=== PATIENT | female | born 1990 | race African-American/Black ===

== ENCOUNTER 2016-11-16 23:12 | Emergency (ER) | payer OTHER ==
--- NOTE | ~2016-11-16 | US61 ---
[facility] A Service of [facility] & [facility] RADIOLOGY TEXT RESULTS PATIENT: LEIGH RICHARDSON LOCATION: [facility] : [birth year] UNIT #: [id number] AGE: [address]: Melvi Cortes MD SEX: F ORDER DR: [id number] [facility] [address] [place], [place] [address] [id number] E MR#: [id number] Acc #: [id number] NAME: LEIGH RICHARDSON : 1990 SEX: F STUDY DATE/TIME: 11/17/2016 4:42 UNIT: [facility] ROOM: STUDY DESCRIPTION: US /Mat <14Wk / Attending Physician: Melvi Cortes M.D. Ordering Physician: Melvi Cortes M.D. Primary Care Physician: No Primary Care Physician MEDICAL IMAGING REPORT This report is preliminary unless electronic signature is present EXAM Early ultrasound. INDICATIONS Abdominal pain. Quantitative HCG 16,000. FINDINGS Transabdominal and transvaginal imaging was performed. The uterus is 10.1 x 4.5 x 6.1 cm. There is a gestational sac within the uterus. A yolk sac is visible. No pole is visible. Estimated gestational age based on the 16 mm gestational sac diameter is 6 weeks and 4 days. Right ovary is normal in appearance and is 3.2 cm in diameter. Left ovary is normal in appearance and is 2.3 cm in diameter. IMPRESSION 1. There is a gestational sac, but no pole is visible, and there is no heartbeat visible. Based on gestational sac size, the patient should be 6 weeks and 4 days . The absence of a pole could indicate a blighted ovum or it could simply be a very early . 2. The ovaries appear normal. Dictated by... Domingo Randhawa M.D. THIS IS AN ELECTRONICALLY VERIFIED REPORT Domingo Randhawa M.D. at 11/18/2016 3:38 AM RAMESH/humberto TD: 11/17/2016 10:28 JOB #: [id number] [facility] A Service of [facility] & [facility] RADIOLOGY TEXT RESULTS PATIENT: LEIGH RICHARDSON LOCATION: [facility] #: [id number] : [birth year] UNIT #: [id number] AGE: [address]: Melvi Cortes MD SEX: F ORDER DR: MEDICAL IMAGING REPORT Page 1 of 1 COPY
[2016-11-17 03:44] LABS: BASOPHIL# 0.1 X10e3 (0-0.3); BASOPHIL% 1.1 % (0-2.5); EOSINOPHIL# 0.1 X10e3 (0-0.7); EOSINOPHIL% 1.6 % (0.0-7.0); HEMATOCRIT 43.6 % (35.0-45.0); HEMOGLOBIN 14.6 gm/dL (12.0-16.0); LYMPHOCYTE# 3.2 X10e3 (1.0-3.5); LYMPHOCYTE% 34.5 % (17.0-45.0); MEAN CELL VOLUME 93.2 FL (83-96); MEAN CORPUSCULAR HEMOGLOBIN 31.2 PG (28-34); MEAN CORPUSCULAR HGB CONC 33.5 g/dL (30-36); MEAN PLATELET VOLUME 7.1 FL (6.5-11.5); MONOCYTE# 0.6 X10e3 (0-1.0); MONOCYTE% 6.9 % (3.0-12.0); NEUTROPHIL# 5.3 X10e3 (1.5-7.1); NEUTROPHIL% 55.9 % (40-75); PLATELET COUNT 345 X10e3 (140-420); RED BLOOD COUNT 4.68 X10e (3.90-5.30); RED CELL DISTRIBUTION WIDTH 12.9 % (11.0-15.5); WHITE BLOOD COUNT 9.4 X10e3 (4.0-10.5)
[2016-11-17 03:45] LABS: DIFF IND NO
[2016-11-17 04:10] LABS: CALCIUM SERUM 9.2 mg/dL (8.4-10.2); CREATININE SERUM 0.9 mg/dL (0.6-1.4); GLOM FILT RATE Estimated 103.1 mL/min (>60); POTASSIUM 3.6 mmol/L (3.5-5.1)
== END 2016-11-17 05:25 | disposition home or self-care (01) ==
LOC: CED 23:12
PROVIDERS: Student in an Organized Health Care Education/Training Program
DX: O20.0 Threatened abortion (principal); Z3A.01 Less than 8 weeks gestation of pregnancy
CPT/HCPCS: 36415; 76801; 80048; 84702; 84703; 85025; 99284